=== PATIENT | male | born 1965 | race Caucasian/White ===

== ENCOUNTER → 2017-05-09 | Outpatient (CLI) | payer BC | LOC: CFH 07:15 | PROVIDERS: ATTEND Internal Medicine Cardiovascular Disease | DX: Z02.9 Encounter for administrative examinations, unspecified (principal) ==

== ENCOUNTER → 2017-05-15 | Outpatient (CLI) | payer BC | END | disposition home or self-care (01) | LOC: CVU 07:33 | PROVIDERS: ATTEND Internal Medicine Cardiovascular Disease | DX: I35.8 Other nonrheumatic aortic valve disorders (principal); I25.10 Atherosclerotic heart disease of native coronary artery without angina pectoris; I65.23 Occlusion and stenosis of bilateral carotid arteries; I10 Essential (primary) hypertension; I25.2 Old myocardial infarction; F17.210 Nicotine dependence, cigarettes, uncomplicated; Z95.5 Presence of coronary angioplasty implant and graft | CPT/HCPCS: 93880; C8929 ==

== ENCOUNTER 2017-05-30 06:17 | Observation (INO) | payer BC ==
[2017-05-27 16:05] VITALS: BP 118/62
[2017-05-27 16:33] LABS: HEMATOCRIT 44.8 % (39.2-51.8); HEMOGLOBIN 15.5 g/dL (13.7-18.0); WHITE BLOOD COUNT 10.6 x10^3/uL (3.4-10)
[2017-05-27 16:45] LABS: ASPARTATE AMINO TRANSFERASE 16 U/L (15-37); BLOOD UREA NITROGEN 14 mg/dL (7-18)
[~2017-05-30] VITALS: Ht 172.7 cm; Wt 88.6 kg
[~2017-05-30 06:17] MED LIST: ASPI-496 PO; ATOR40TA PO; ENAL2.5T PO; METO25TA91 PO; NITR0.4T SL
[2017-05-30] MEDS: SODIUM CHLORIDE 0.9% 1,000 ML IV SCH ×3 (06:32→22:32)
[2017-05-30] MEDS ORDERED: CEFAZOLIN PMX 1GM/50ML 50 ML IVPB ONE (07:00)
[2017-05-30] MEDS ORDERED: FENTANYL PF 100 MCG/2ML ONE ×3 (07:24→08:00)
[2017-05-30] MEDS ORDERED: MIDAZOLAM 1 MG/ML, 5ML ONE ×3 (07:24→08:00)
[2017-05-30] MEDS ORDERED: CEFAZOLIN PMX 1GM/50ML 50 ML ONE (07:24)
[2017-05-30] MEDS ORDERED: CEFAZOLIN 1,000 MG ONE ×2 (07:24→08:00)
[2017-05-30] MEDS ORDERED: LIDOCAINE 2%, 20ML ONE (07:24)
[2017-05-30] MEDS ORDERED: EPINEPHRINE 1 MG/ML, 1ML ONE (08:00)
[2017-05-30] MEDS ORDERED: MIDAZOLAM 1 MG/ML, 2ML ONE (08:00)
[2017-05-30] MEDS ORDERED: ONDANSETRON 2MG/ML, 2ML ONE (08:00)
[2017-05-30] MEDS ORDERED: SUCCINYLCHOLINE 20 MG/ML, 10ML ONE (08:00)
[2017-05-30] MEDS ORDERED: ROCURONIUM 10 MG/ML,10ML ONE (08:00)
[2017-05-30] MEDS ORDERED: PROPOFOL 10 MG/ML, 20ML ONE (08:00)
[2017-05-30] MEDS ORDERED: DEXAMETHASONE 4 MG/ML, 1ML ONE (08:00)
[2017-05-30] MEDS ORDERED: ONDANSETRON 2MG/ML, 2ML IVPush PRN (09:30)
[2017-05-30] MEDS ORDERED: MIDAZOLAM 1 MG/ML, 2ML IV PRN (09:30)
[2017-05-30] MEDS ORDERED: MEPERIDINE/PF 25MG/0.5ML IVPush PRN (09:30)
[2017-05-30] MEDS ORDERED: HYDROmorphone 1 MG/ML, 1ML IV PRN (09:30)
[2017-05-30] MEDS ORDERED: ACETAMINOPHEN 325 MG TABLET PO PRN (09:30)
[2017-05-30] MEDS ORDERED: OXYcodone 5 MG/5 ML ORAL.SOL UDC PO PRN (09:30)
[2017-05-30] MEDS ORDERED: PROMETHAZINE 25 MG/ML, 1ML IV PRN (09:30)
[2017-05-30] MEDS ORDERED: HYDROcodone/APAP 5/325 TABLET PO PRN (09:30)
[2017-05-30] MEDS ORDERED: FENTANYL PF 100 MCG/2ML IV PRN (09:30)
[2017-05-30] MEDS ORDERED: hydrALAzine 20 MG/ML, 1ML IV PRN (09:30)
[2017-05-30] MEDS ORDERED: ALBUTEROL SULFATE 2.5 MG/3 ML NPPB PRN (09:30)
[2017-05-30] MEDS ORDERED: LABETALOL 5MG/ML, 20ML IV PRN (09:30)
[2017-05-30] MEDS ORDERED: ZOLPIDEM 5MG TABLET PO PRN (09:30)
[2017-05-30 12:57] VITALS: BP 100/51
[2017-05-30] MEDS ORDERED: CEFAZOLIN PMX 1GM/50ML 50 ML IVPB SCH (16:00)
[2017-05-30] MEDS: CEFAZOLIN PMX 1GM/50ML 50 ML IVPB SCH (17:18)
[2017-05-30 19:53] VITALS: BP 128/68
[2017-05-30] MEDS: SODIUM CHLORIDE FLUSH 10ML SYR IVF SCH (20:44)
[2017-05-31] MEDS: CEFAZOLIN PMX 1GM/50ML 50 ML IVPB SCH (00:03)
[2017-05-31 03:00] VITALS: BP 112/69
[2017-05-31] MEDS: SODIUM CHLORIDE 0.9% 1,000 ML IV SCH (06:32)
[2017-05-31 07:43] VITALS: BP 110/63
[2017-05-31] MEDS: SODIUM CHLORIDE FLUSH 10ML SYR IVF SCH (09:00)
== END 2017-05-31 10:32 | disposition home or self-care (01) ==
LOC: CACL 06:17 → 5SO 09:08 → CACL 09:32 → DCLOUNGE 05-31 10:15
PROVIDERS: ADMIT Internal Medicine Cardiovascular Disease; ATTEND Internal Medicine Cardiovascular Disease
DX: I49.01 Ventricular fibrillation (principal); I50.9 Heart failure, unspecified; I25.5 Ischemic cardiomyopathy; I34.0 Nonrheumatic mitral (valve) insufficiency; E78.00 Pure hypercholesterolemia, unspecified; R06.83 Snoring; R09.89 Other specified symptoms and signs involving the circulatory and respiratory systems; F17.210 Nicotine dependence, cigarettes, uncomplicated
CPT/HCPCS: 33249; 36415; 71010; 71020; 80053; 85025; 96365; 96375; C1721; C1779; C1892; C1895; G0378; J0171; J0330; J0690; J1100; J2250; J2405; J2704; J3010; J3490